=== PATIENT | female | born 1955 | race Caucasian/White ===

== ENCOUNTER 2016-06-17 11:36 | Emergency (ER) | payer OTHER ==
--- NOTE | 2016-06-17 12:39 | ED.PDOC ---
History of Present Illness - General Chief Complaint: Problem Stated Complaint: difficulty urinating,fever Time Seen by Provider: 06/17/16 12:39 Source: patient Exam Limitations: no limitations - History of Present Illness Initial Comments: Ms. Dottie Mathias 60 y/o female who has been apparently well until 4 days PTC here at er when she initially had burning urination then followed by fever, nausea, vomiting which started yesterday.Denies chronic medical problem. Timing/Duration: getting worse, other - 4 days ago Quality: moderate, intermittent, sharpness, waxing/waning Onset Location: generalized flank Radiation: none Activites at Onset: none Prior abdominal problems: none Sexual intercourse history: not active Improving Factors: nothing Worsening Factors: nothing Associated Symptoms: abdominal pain, dysuria, fever/chills, nausea/vomiting Allergies/Adverse Reactions: Allergies NO KNOWN ALLERGY Allergy (Verified 02/27/12 06:43) Home Medications: Ambulatory Orders Levofloxacin [Levaquin] 500 mg PO DAILY #10 tab 06/17/16 Promethazine W/Codeine Syr [Phenergan With Codeine Syrup] 10 ml PO TID PRN #120 ud 06/17/16 Review of Systems - Review of Systems Constitutional: States: no symptoms reported EENTM: States: no symptoms reported Respiratory: States: no symptoms reported Cardiology: States: no symptoms reported Gastrointestinal/Abdominal: States: see HPI Genitourinary: States: see HPI Skin: States: no symptoms reported Neurological: States: no symptoms reported Endocrine: States: no symptoms reported Hematologic/Lymphatic: States: no symptoms reported Past Medical History (General) - Patient Medical History Hx Congestive Heart Failure: No Hx Diabetes: No Surgical History: other - hysterectomy - Vaccination History Hx Influenza Vaccination: No - Social History Hx Tobacco Use: No - Activities of Daily Living Patient Lives Alone: No - family Family Medical History - Family History Mother Family History: No Known Living Status: Unknown Physical Exam - Physical Exam General Appearance: Alert, Comfortable, No apparent distress Eyes, Ears, Nose, Throat Exam: PERRL/EOMI, normal ENT inspection, TMs normal, pharynx normal Neck: non-tender, full range of motion, supple, normal inspection Cardiovascular/Respiratory: regular rate, rhythm, no M/R/G, normal peripheral pulses, no JVD Gastrointestinal/Abdominal: normal bowel sounds, non tender, soft, no organomegaly, no pulsatile mass Back Exam: normal inspection, no vertebral tenderness, CVA tenderness (R), CVA tenderness (L) Extremity: normal range of motion, non-tender, normal inspection, no pedal edema Neurologic: no motor/sensory deficits, alert, normal mood/affect, oriented x 3 Skin Exam: normal color, warm/dry Lymphatic: no adenopathy Progress - Results/Orders Results/Orders: 06/17/16 12:57 URINE CULTURE W/COLONY COUNT Stat 06/17/16 15:29 Sodium Chloride 0.9% 1000ML [Ns 1000 ml] 1,000 ml IVS ONCE 06/17/16 15:30 levoFLOXacin 500MG IV [Levaquin 500MG IV] 500 mg Premix Bag 1 bag IVPB ONCE Laboratory Results WBC 16.7 K/mm3 (4.8-10.8) H 06/17/16 12:55 RBC 4.14 M/mm3 (4.20-5.40) L 06/17/16 12:55 Hgb 13.2 gm/dL (12.0-16.0) 06/17/16 12:55 Hct 39.6 % (36.0-47.0) 06/17/16 12:55 MCV 95.5 fl (81.0-99.0) 06/17/16 12:55 MCH 31.8 pg (27.0-31.0) H 06/17/16 12:55 MCHC 33.4 g/dL (33.0-37.0) 06/17/16 12:55 RDW 12.4 % (11.5-14.5) 06/17/16 12:55 Plt Count 184 K/mm3 (130-400) 06/17/16 12:55 MPV 8.4 fl (7.40-10.4) 06/17/16 12:55 Absolute Neuts (auto) 14.00 K/uL (1.8-6.8) H 06/17/16 12:55 Absolute Lymphs (auto) 1.10 K/uL (1.0-3.4) 06/17/16 12:55 Absolute Monos (auto) 1.60 K/uL (0.2-0.8) H 06/17/16 12:55 Absolute Eos (auto) 0.00 K/uL (0.0-0.4) 06/17/16 12:55 Absolute Basos (auto) 0.00 K/uL (0.0-0.1) 06/17/16 12:55 Neutrophils % 83.8 % (42.0-78.0) H 06/17/16 12:55 Lymphocytes % 6.4 % (20.0-50.0) L 06/17/16 12:55 Monocytes % 9.6 % (2.0-9.0) H 06/17/16 12:55 Eosinophils % 0.0 % (1.0-5.0) L 06/17/16 12:55 Basophils % 0.2 % (0.0-2.0) 06/17/16 12:55 Sodium 133 mmol/L (135-145) L 06/17/16 12:55 Potassium 3.1 mmol/L (3.6-5.0) L 06/17/16 12:55 Chloride 95 mmol/L (101-111) L 06/17/16 12:55 Carbon Dioxide 29 mmol/L (21-31) 06/17/16 12:55 Anion Gap 12.1 (12-18) 06/17/16 12:55 BUN 9 mg/dL (7-18) 06/17/16 12:55 Creatinine 0.75 mg/dL (0.6-1.3) 06/17/16 12:55 BUN/Creatinine Ratio 12.0 (10-20) 06/17/16 12:55 Random Glucose 129 mg/dL (70-105) H 06/17/16 12:55 Serum Osmolality 266.8 mOsm/L (275-295) L 06/17/16 12:55 Calcium 8.6 mg/dL (8.4-10.2) 06/17/16 12:55 Total Bilirubin 2.4 mg/dL (0.2-1.0) H* 06/17/16 12:55 AST 56 IU/L (10-42) H 06/17/16 12:55 ALT 76 IU/L (10-60) H 06/17/16 12:55 Alkaline Phosphatase 206 IU/L (42-121) H 06/17/16 12:55 Serum Total Protein 7.7 gm/dL (6.4-8.2) 06/17/16 12:55 Albumin 3.3 g/dl (3.2-5.5) 06/17/16 12:55 Globulin 4.4 gm/dL (2.3-3.5) H 06/17/16 12:55 Albumin/Globulin Ratio 0.8 (1.1-1.9) L 06/17/16 12:55 Lipase 18 U/L (22-51) L 06/17/16 12:55 TSH 1.32 uIU/mL (0.34-5.60) 06/17/16 12:55 Urine Color Yellow (Yellow) 06/17/16 12:57 Urine Appearance Sl cloudy (Clear) 06/17/16 12:57 Urine pH 6.0 (4.5-7.8) 06/17/16 12:57 Ur Specific [place] <= 1.005 (1.005-1.030) 06/17/16 12:57 Urine Protein Negative mg/dL 06/17/16 12:57 Urine Glucose (UA) Negative mg/dL (Negative) 06/17/16 12:57 Urine Ketones 40 mg/dL (NEGATIVE) H 06/17/16 12:57 Urine Blood Small (Negative) H 06/17/16 12:57 Urine Nitrite Positive H 06/17/16 12:57 Urine Bilirubin Negative (NEGATIVE) 06/17/16 12:57 Urine Urobilinogen 2.0 mg/dL (0.2-1.0) H 06/17/16 12:57 Ur Leukocyte Esterase Trace (Negative) H 06/17/16 12:57 Urine RBC 3-5 /hpf H 06/17/16 12:57 Urine WBC 10-20 /hpf H 06/17/16 12:57 Ur Epithelial Cells 0 /hpf 06/17/16 12:57 Urine Bacteria 2+ H 06/17/16 12:57 Departure - Departure Clinical Impression: Nausea and vomiting in adult, Pyelonephritis, acute, Abnormal liver enzymes, Nephrolithiasis Time of Disposition: 17:17 Disposition: Discharge to Home or Self Care Departure Forms: ED Discharge - Pt. Copy, Patient Portal Self Enrollment Instructions: Kidney Infection, DI for Kidney Infection Referrals: Binh Lewis MD [Primary Care Provider] - 1-2 Weeks Prescriptions: Levofloxacin [Levaquin] 500 mg PO DAILY #10 tab Promethazine W/Codeine Syr [Phenergan With Codeine Syrup] 10 ml PO TID PRN #120 ud PRN Reason: Pain Home Medications: Ambulatory Orders Levofloxacin [Levaquin] 500 mg PO DAILY #10 tab 06/17/16 Promethazine W/Codeine Syr [Phenergan With Codeine Syrup] 10 ml PO TID PRN #120 ud 06/17/16 Additional Instructions: FOLLOW UP WITH PRIMARY MD 06/18/16 for referral to product technician and urologist;Return to EMERGENCY ROOM NEEDED
--- NOTE | 2016-06-17 13:18 | RAD ---
EXAM DESCRIPTION: Chest,1 View CLINICAL HISTORY: 60 years Female, fever COMPARISON: 1-20 13 IMPRESSION: Heart size and pulmonary vascularity are within normal limits. Mild elevation the right hemidiaphragm. Mild linear opacities in the left lung base. These are favored to represent atelectasis or scarring, though developing pneumonia is not totally excluded. There is no confluent airspace consolidation, pleural effusion, or pneumothorax. No acute osseous abnormality. Electronically signed by: Prakash Gibson MD 06/17/2016 1:17 PM CDT
[2016-06-17] MEDS ORDERED: PROCHLORPERAZINE INJ 10 MG/2 ML VIAL IV ONE (15:29)
[2016-06-17] MEDS ORDERED: SODIUM CHLORIDE 0.9% 1000ML 1,000 ML IVS ONE (15:29)
[2016-06-17] MEDS ORDERED: levoFLOXacin 500MG IV 500 MG in PREMIX BAG 1 BAG IVPB ONE (15:30)
--- NOTE | 2016-06-17 15:35 | US ---
EXAM DESCRIPTION: Abdomen,Complete CLINICAL HISTORY: elevated liver enzymes COMPARISON: None Available. TECHNIQUE: Complete abdominal ultrasound FINDINGS: The liver is normal in size. 2 anechoic cysts are demonstrated in the right lobe measuring up to 2.5 cm. The gallbladder contains no sludge, calculus, or polyps. The gallbladder wall measures 2 mm. The common bile duct measures 5 mm. Visualized portions of the pancreas are unremarkable. The spleen is normal in size, shape, and echotexture. 7 mm right renal calculus. The kidneys are otherwise normal in size, shape, and echotexture. The IVC and the proximal aorta are unremarkable. In the left upper quadrant, there is focal fluid which measures up to 6 cm, with a hyperechoic rim which is favored to represent distended fluid-filled small bowel or colon. IMPRESSION: 1. Suspected fluid-filled and distended small bowel or colon in the left upper quadrant. Contrast-enhanced CT recommended for further evaluation. 2. Right renal calculus. Electronically signed by: Prakash Gibson MD 06/17/2016 3:34 PM CDT
[2016-06-17] MEDS ORDERED: levoFLOXacin 500MG IV 100 ML IVPB ONE (15:43)
--- NOTE | 2016-06-17 17:06 | CT ---
EXAM DESCRIPTION: Abdomen/Pelvis w/Contrast CLINICAL HISTORY: pain fever COMPARISON: Abdominal sonography dated the same date. TECHNIQUE: Transaxial images were obtained post administration of intravenous contrast medium without oral contrast media. Sagittal and coronal reconstruction was performed. This exam was performed according to our departmental dose-optimization program, which includes automated exposure control, adjustment of the mA and/or kV according to patient size and/or use of iterative reconstruction technique. FINDINGS: Some atelectasis is observed in the right lung base. 2 simple cysts are observed in the right lobe of the liver. No biliary ductal dilatation is observed. The spleen is normal in appearance. No adrenal masses are detected. The pancreas is normal in appearance. Imaging of the kidneys reveals minimal stranding about the kidney. There is heterogeneous enhancement of the kidney consistent with pyelonephritis. No stone is detected. No hydronephrosis is seen. Some diverticulosis of the colon is observed without evidence of diverticulitis. No free fluid is observed. The patient is post hysterectomy. No inguinal region abnormality is detected. Degenerative changes are observed in the lower lumbar spine. IMPRESSION: 1. Minimal right basilar atelectasis is observed. 2. Heterogeneous enhancement pattern is observed in the right kidney consistent with pyelonephritis. No obstructing stone is seen. 3. Uncomplicated diverticulosis of the colon. 4. hysterectomy Electronically signed by: Ricky Albrecht MD 06/17/2016 5:06 PM CDT
[2016-06-17 17:32] VITALS: BP 124/97; TEMP 97.4; O2SAT 98
== END 2016-06-17 17:31 | disposition home or self-care (01) ==
LOC: ER 11:36
DX: N10 Acute pyelonephritis (principal); R11.2 Nausea with vomiting, unspecified; R74.8 Abnormal levels of other serum enzymes; N20.0 Calculus of kidney
CPT/HCPCS: 36415; 71010; 74177; 76700; 80053; 81001; 83690; 84443; 85025; 87086; J0780; J1956; J7030

== ENCOUNTER 2018-01-28 17:53 | Emergency (ER) | payer OTHER ==
[2018-01-28] MEDS ORDERED: NEOMYCIN-BACITRACIN-POLYMYXIN 0.9 GM UD TOP ONE (18:29)
[2018-01-28] MEDS ORDERED: CHLORHEXIDINE GLUCONATE 4 % 15 ML UD TOP ONE (18:29)
--- NOTE | 2018-01-28 19:16 | RAD ---
Three views of the cervical spine HISTORY: Fall complaining of lower neck pain COMPARISON: None FINDINGS: There is slight reversal of the normal cervical lordosis. Disc space narrowing and marginal osteophytes C3-4, C4-5 and maximal at T5-6. No acute fracture or subluxation. Visualized lung apices are clear. Soft tissues are unremarkable. IMPRESSION: 1. Multilevel degenerative disc changes maximal at C5-6. Electronically signed by: Thomas Matson DO 01/28/2018 7:15 PM [facility]
--- NOTE | 2018-01-28 19:26 | ED.PDOC ---
History of Present Illness - General Chief Complaint: General Stated Complaint: s/p fall Time Seen by Provider: 01/28/18 18:13 Source: patient Exam Limitations: no limitations - History of Present Illness Initial Comments: The patient is a 62-year-old female that was walking earlier today when she tripped and fell and landed on her face. She has an abrasion over the nasal bridge proximally and over the tip of her nose as well as an abrasion over the philtrum of her lip and a chipped incisor along with a small laceration to her lower lip. No loss of consciousness. There is also a bruise over her left maxillary prominence. Extraocular movements are intact. No pain with extraocular movements. No proptosis. No blood from the nares. Nasal septum is symmetrical. No loss of consciousness. No altered mental status. She does have mild diffuse pain over the lower posterior neck. No palpable deformity. No real spinous process tenderness to palpation. No other injuries. Timing/Duration: momentarily Severity: mild Improving Factors: nothing Worsening Factors: nothing Associated Symptoms: denies symptoms Allergies/Adverse Reactions: Allergies NO KNOWN ALLERGY Allergy (Verified 02/27/12 06:43) Home Medications: Ambulatory Orders NK [NK] 01/28/18 Review of Systems - Review of Systems Constitutional: States: no symptoms reported EENTM: States: see HPI Respiratory: States: no symptoms reported Cardiology: States: no symptoms reported Gastrointestinal/Abdominal: States: no symptoms reported Genitourinary: States: no symptoms reported Musculoskeletal: States: see HPI Skin: States: no symptoms reported Neurological: States: no symptoms reported Endocrine: States: no symptoms reported All other Systems: No Change from Baseline Past Medical History (General) - Patient Medical History Hx Stroke: No Hx Congestive Heart Failure: No Hx Diabetes: No Surgical History: Hysterectomy - Vaccination History Hx Tetanus, Diphtheria Vaccination: - 10 years Hx Influenza Vaccination: Yes Hx Pneumococcal Vaccination: No - Social History Hx Tobacco Use: No Family Medical History - Family History Mother Family History: No Known Living Status: Unknown Physical Exam - Physical Exam General Appearance: Alert, Comfortable, No apparent distress Eye Exam: bilateral normal Ears, Nose, Throat: hearing grossly normal, normal ENT inspection Neck: full range of motion, other - see history of present illness Respiratory: no respiratory distress, no accessory muscle use Cardiovascular/Chest: normal peripheral pulses, no edema, other - regular rate Peripheral Pulses: radial,right: 2+, radial,left: 2+ Gastrointestinal/Abdominal: non tender, soft Rectal Exam: deferred Back Exam: normal inspection Extremity: normal range of motion, non-tender, normal inspection, no pedal edema , normal capillary refill Neurologic: epic analyst II-XII nml as tested, no motor/sensory deficits, alert, normal mood/affect, oriented x 3 Skin Exam: normal color - abrasions as above Comments: Vital Signs - 24 hr 01/28/18 18:01 Temperature 97.4 F L Pulse Rate [ 96 H Left Brachial] Respiratory 20 Rate Blood Pressure 151/71 [Left Arm] O2 Sat by Pulse 99 Oximetry Progress - Progress Progress: 01/28/18 19:26 the 62-year-old female presents after having fallen on accident. She has abrasions over her nose and upper lip and a small laceration to the lower lip. She also has a fractured upper incisor. She will need to see a dentist for this. Wounds were cleaned. She can apply antibiotic ointment once to twice daily to the wounds to prevent infection. X-ray of the cervical spine shows no evidence of any fracture or subluxation. No evidence of any facial fracture on physical exam. Patient may take Motrin or Tylenol as needed for discomfort. ER warnings were given Departure - Departure Clinical Impression: Facial abrasion Qualifiers: Encounter type: initial encounter Qualified Code(s): S00.81XA - Abrasion of other part of head, initial encounter Fractured tooth Qualifiers: Encounter type: initial encounter Fracture type: open Qualified Code(s): S02.5XXB - Fracture of tooth (traumatic), initial encounter for open fracture Cervical myofascial strain Qualifiers: Encounter type: initial encounter Qualified Code(s): S16.1XXA - Strain of muscle, fascia and tendon at neck level, initial encounter Disposition: Discharge to Home or Self Care Condition: Fair Departure Forms: ED Discharge - Pt. Copy, Patient Portal Self Enrollment Diet: regular diet Activity: increase activity as tolerated Referrals: Binh Lewis MD [Primary Care Provider] - 1-2 Weeks Home Medications: Ambulatory Orders NK [NK] 01/28/18 Additional Instructions: the 62-year-old female presents after having fallen on accident. She has abrasions over her nose and upper lip and a small laceration to the lower lip. She also has a fractured upper incisor. She will need to see a dentist for this. Wounds were cleaned. She can apply antibiotic ointment once to twice daily to the wounds to prevent infection. X-ray of the cervical spine shows no evidence of any fracture or subluxation. No evidence of any facial fracture on physical exam. Patient may take Motrin or Tylenol as needed for discomfort. ER warnings were given
[2018-01-28 19:37] VITALS: BP 148/89; TEMP 97.3; O2SAT 97
== END 2018-01-28 19:36 | disposition home or self-care (01) ==
LOC: ER 17:53
DX: S02.5XXB Fracture of tooth (traumatic), initial encounter for open fracture (principal); S01.511A Laceration without foreign body of lip, initial encounter; S16.1XXA Strain of muscle, fascia and tendon at neck level, initial encounter; S00.31XA Abrasion of nose, initial encounter; W01.0XXA Fall on same level from slipping, tripping and stumbling without subsequent striking against object, initial encounter; Y93.01 Activity, walking, marching and hiking

== ENCOUNTER → 2019-01-28 | Outpatient (CLI) | payer OTHER ==
--- NOTE | 2019-01-28 15:16 | MAM ---
EXAM DESCRIPTION: 3D Screening BILATERAL : Digital Mammography. CLINICAL HISTORY: 63 years Female ANNUAL SCREENING no complaints. No personal history of breast cancer. Female sibling with breast cancer age 54. Menarche age 14. Childbirth age 31. Menopause age 53. HRT 5 or more years ago. Lifetime risk of developing breast cancer (Tyrer-Cuzick model)(%): 13.5. COMPARISON: 2-D digital screening bilateral mammography 27 November 2011. No prior reports available. TECHNIQUE: Bilateral CC and MLO projection full-field images, digital tomosynthesis mammographic technique. Bilateral digital 2-D full-field MLO images. CAD not available for tomosynthesis or 2-D images. FINDINGS: The breast parenchymal density pattern is: Scattered areas of fibroglandular density. No skin thickening or nipple retraction. Solitary microcalcification mid left breast. Left axillary lymph nodes. Stable lymph node in the lateral aspect of the middle third of the right breast. No new focal, stellate mass or density, focal asymmetry , and no suspicious microcalcifications bilaterally. Stable mammograms compared to prior study. Taking into account, differences in mammographic technique. IMPRESSION: Benign exam. BIRAD CATEGORY: 2 BENIGN FINDINGS. RECOMMENDATIONS: FOLLOW UP: Routine digital bilateral mammographic screening, one year interval from January 2019. Written communication explaining the IMPRESSION and follow-up, will be mailed to the patient and referring health care provider. According to the [employer], yearly mammograms are recommended starting at age 40 and continuing as long as a woman is in good health. Any breast change noted on a breast self-exam should be reported promptly to the patient's healthcare provider. Breast MRI is recommended for women with an approximately 20-25% or greater lifetime risk of breast cancer, including women with a strong family history of breast or ovarian cancer and women who have been treated for Hodgkin's disease. A negative mammographic report should not delay tissue diagnosis in patients with significant clinical history or physical findings. Extremely dense breast tissue limits the sensitivity of digital mammography. Electronically signed by: Iván Menjivar MD 01/28/2019 3:14 PM [employer]
== END ==
LOC: MAMMO 11:00
PROVIDERS: ATTEND Obstetrics & Gynecology
DX: Z12.31 Encounter for screening mammogram for malignant neoplasm of breast (principal)